=== PATIENT | male | born 1990 | race Two or more races ===

== ENCOUNTER 2023-11-22 14:04 | Emergency (ER) | payer OTHER ==
[~2023-11-22] VITALS: Ht 175.3 cm; Wt 106.0 kg
[2023-11-22 15:14] VITALS: BP 152/94; PULSE 81; RESP 16; TEMP 98.6; O2SAT 96
[2023-11-22] MEDS ORDERED: IBUP-1454 PO (16:19)
== END 2023-11-22 16:25 | disposition home or self-care (01) ==
LOC: ER 14:04
DX: M23.92 Unspecified internal derangement of left knee (principal)
CPT/HCPCS: 73562